=== PATIENT | female | born 1985 | race Caucasian/White ===

== ENCOUNTER 2024-08-03 12:28 | Outpatient (CLI) | payer BC, SELFPAY | END 2024-08-03 23:59 | disposition home or self-care (01) | LOC: LAB.DROPOF 16:07 | PROVIDERS: PCP Nurse Practitioner; Visit Provider Nurse Practitioner | DX: R30.9 Painful micturition, unspecified (principal) | CPT/HCPCS: 87086; 87088; 87186 ==